=== PATIENT | male | born 1980 | race Caucasian/White ===

== ENCOUNTER 2020-08-05 14:23 | Emergency (ER) | payer OTHER ==
[~2020-08-05 14:23] MED LIST: PREDNISONE 20MG20 MG PO
[2020-08-05] MEDS ORDERED: NORCO 5-325 TA1 EACH PO (15:53)
== END 2020-08-05 16:58 | disposition home or self-care (01) ==
LOC: FER 14:23
DX: S83.92XA Sprain of unspecified site of left knee, initial encounter (principal); W17.89XA Other fall from one level to another, initial encounter; Y92.89 Other specified places as the place of occurrence of the external cause; Y99.0 Civilian activity done for income or pay
CPT/HCPCS: 73560